=== PATIENT | male | born 1955 | race Hispanic/Latino ===

== ENCOUNTER → 2017-02-06 | Outpatient (CLI) | payer MEDICARE ==
[~2017-02-06] MED LIST: SODIUM CHLORIDE 0.9% 250ML 250 ML ONE
[2017-02-06 10:49] LABS: BLOOD UREA NITROGEN 14 mg/dL (7-26); BUN/CREATININE RATIO 18 (6-25); CREATININE, SERUM 0.79 mg/dL (0.72-1.25); EST GLOMERULAR FILTRATION RATE > 60 ML/MIN (60-)
--- NOTE | 2017-02-06 18:37 | Diagnostic Imaging Report ---
PROCEDURE: CT ABDOMEN \T\ PELVIS W/WO CONTRAST TECHNIQUE: The abdomen and pelvis were scanned utilizing a multidetector helical scanner from the diaphragm to the lesser trochanter before and after the IV administration of 150 cc of Isovue 370 and the oral administration of water. Hematuria protocol was utilized. Coronal and sagittal multiplanar reformations were obtained. COMPARISON: [facility], CT, CT ABDOMEN/PELVIS WO, 10/16/2013, 8:42. INDICATIONS: GROSS HEMATURIA FINDINGS: LOWER THORAX: Partially visualized mitral valve prosthesis. Stable linear scarring in the lateral right middle lobe (series 3, image 12). HEPATOBILIARY: Borderline low attenuation of the hepatic parenchyma, consistent with mild fatty infiltration. No focal hepatic lesions. No biliary ductal dilation. Stable calcified stones in the gallbladder lumen. No wall thickening or pericholecystic fluid. SPLEEN: No splenomegaly. PANCREAS: No focal masses or ductal dilatation. ADRENALS: No adrenal nodules. KIDNEYS/URETERS: No renal or ureteral calculi. No hydronephrosis, hydroureter, or evidence of obstruction. No solid enhancing masses. Bilateral subcentimeter hypodense lesions which are too small to characterize, but likely represent small cysts. Contrast opacification of bilateral renal collecting systems, renal pelves and bilateral ureters. No filling defects, strictures, or extrinsic compressions. PELVIC ORGANS/BLADDER: No bladder calculi, wall thickening, or focal lesions. Prostate is unremarkable.. PERITONEUM / RETROPERITONEUM: No free air or fluid. LYMPH NODES: No lymphadenopathy. VESSELS: Atherosclerotic calcification of the abdominal aorta and iliac vessels. GI TRACT: No bowel dilation or evidence of obstruction. No pericolonic inflammatory changes. A few scattered diverticula in the distal descending/proximal sigmoid colon without diverticulitis. BONES AND SOFT TISSUES: No acute bony abnormalities. Degenerative disc changes, predominantly at L5-S1 with moderate to marked intervertebral disc space narrowing. Bilateral fat containing inguinal hernias, left greater than right. IMPRESSION: 1. no renal, ureteral, or bladder calculi. No hydronephrosis or obstruction. No filling defects, strictures, or extrinsic compressions in the opacified portions of the genitourinary tract. 2. Mild hepatic steatosis. 3. Cholelithiasis, without CT evidence of cholecystitis. Darrel Aponte M.D. Dictated by: Darrel Aponte M.D. on 02/06/2017 at 18:45 Electronically approved by: Darrel Aponte M.D. on 02/06/2017 at 18:45
== END ==
LOC: CT 09:49
PROVIDERS: ATTEND Urology
DX: R31.9 Hematuria, unspecified (principal)
CPT/HCPCS: 36415; 74178; 82565; 84520; J7050